=== PATIENT | male | born 1965 | race African-American/Black ===

== ENCOUNTER 2024-12-28 20:49 | Emergency (ER) | payer SELFPAY ==
[~2024-12-28] VITALS: Ht 175.3 cm; Wt 65.8 kg
[2024-12-28 21:03] VITALS: TEMP 98.6
[2024-12-28] MEDS: IV NS 0.9% 1,000 ML BAG IV ONE (21:36)
[2024-12-28 21:37] LABS: PLATELET COUNT (AUTO) 293 K/uL (150-450); RED BLOOD CELL COUNT(AUTO) 5.30 MIL/uL (4.5-6.0); RED CELL DISTRIBUTION WIDTH 15.0 % (11.5-15.0); WHITE BLOOD COUNT (AUTO) 9.0 K/uL (4.3-11.0)
[2024-12-28 21:46] LABS: CALCIUM, SERUM 9.5 mg/dL (8.5-10.1); CREATININE 1.1 mg/dL (0.6-1.3); SODIUM SERUM 140 mmol/L (136-145); UREA NITROGEN, BLOOD 18 mg/dL (7-18)
[2024-12-28 21:49] LABS: ALCOHOL, BLOOD < 3 mg/dL (0-10)
[2024-12-28 23:17] VITALS: BP 119/77; O2SAT 99
== END 2024-12-28 23:00 | disposition home or self-care (01) ==
LOC: ER 21:09
DX: R55 Syncope and collapse (principal); E11.9 Type 2 diabetes mellitus without complications
CPT/HCPCS: 99285; 96360; 93005; 71045; 72125; 70450; 85025; 80048; 36415; 84443; 84484; 82962; 80320; J7030; G0480